=== PATIENT | male | born 1935 | race Caucasian/White ===

== ENCOUNTER → 2016-05-21 | Outpatient (CLI) | payer MEDICARE, BC ==
--- NOTE | 2016-05-21 15:23 | MR ---
EXAMINATION TYPE: MR brain wo/w con DATE OF EXAM: 05/21/2016 2:04 PM COMPARISON: NONE HISTORY: headaches, Lung Ca CONTRAST: Patient received 10 mL intravenous MultiHance gadolinium contrast. Multiplanar and multispin-echo imaging of the brain was performed . Pre and post contrast enhanced i mages are obtained. The ventricles, basal cisterns and sulci overlying the cerebral convexities are mildly enlarged. There is evidence of moderate confluent periventricular white matter ischemic demyelination. Remote deep white matter insults are also noted. No acute edema is seen on diffusion weighted imaging. There is no evidence for midline shift or mass effect. Acute intracranial hemorrhage or extra-axial collection is not evident. No enhancing lesions are seen. The mastoid air cells are well-aerated. Chronic paranasal sinusitis. IMPRESSION: Age-related atrophic and chronic small vessel ischemic change. No acute intracranial process at this time. No enhancing lesions are seen.
== END | disposition home or self-care (01) ==
LOC: RADMRIMAIN 12:59
PROVIDERS: ATTEND Internal Medicine Hematology & Oncology
DX: I67.82 Cerebral ischemia (principal); G31.9 Degenerative disease of nervous system, unspecified; C34.90 Malignant neoplasm of unspecified part of unspecified bronchus or lung
CPT/HCPCS: 70553; A9577; 99212

== ENCOUNTER → 2016-08-16 | Outpatient (CLI) | payer MEDICARE, BC ==
--- NOTE | 2016-08-16 15:08 | CT ---
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 Coronal/sagittal reconstructions performed. CT DLP: 365mGycm. Automatic exposure control utilized for a dose reduction. FINDINGS: The heart is upper limits of normal in size with a extensive aortic valvular calcifications. Addition al extensive coronary vessel calcifications are present and are remarkable for coronary artery diseas e. Mild ectasia ascending aorta at 3.6 cm. Moderate atherosclerotic arch calcifications with bovine conf iguration to the aortic arch. Calcified mediastinal lymph nodes suggest prior granulomatous disease. No thoracic lymphadenopathy by CT size criteria. Evaluation of the lungs shows moderate centrilobular emphysema with scattered calcified granulomas. T here is some reticular opacities in the lung bases that could reflect interstitial fibrosis. Peripheral left upper lobe lung mass is redemonstrated abutting the pleural surface. This measures th is has an irregular shape with maximal measurements of 2.8 x 3.1 cm versus 3.2 x 3.6 cm. The overall bulk has also decreased in the interval. Moderate atherosclerotic calcifications seen within the visualized upper abdominal aorta with a calci fied granuloma in the superior liver and a couple calcified granulomas in the spleen. Minimal thicken ing of the left adrenal gland is unchanged without discrete nodularity. Bones: Old healed left-sided rib fracture deformities. Endplate spondylosis mid to lower thoracic spi ne. No osseous destructive process. IMPRESSION: 1. The patient's peripheral left upper lobe neoplasm shows some interval decrease in size now measuri ng 3.1 x 2.8 cm versus 3.6 x 2.2 cm, previously. 2. 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
== END | disposition home or self-care (01) ==
LOC: RADCTMAIN 12:49
PROVIDERS: ATTEND Radiology Radiation Oncology
DX: C34.12 Malignant neoplasm of upper lobe, left bronchus or lung (principal); J43.9 Emphysema, unspecified
CPT/HCPCS: 82565; 84520; 71260; 36415; Q9967

== ENCOUNTER → 2017-02-18 | Outpatient (CLI) | payer MEDICARE, BC ==
[2017-02-18 08:18] LABS: Blood Urea Nitrogen 22 mg/dL (9-20); Non-African American GFR(MDRD) >60 (>60 ml/min/1.73 sqM)
--- NOTE | 2017-02-18 11:42 | CT ---
EXAMINATION TYPE: CT chest w con DATE OF EXAM: 02/18/2017 COMPARISON: Chest CT August 16, 2016. PET/CT March 24, 2016 HISTORY: Lung CA left-sided progress study had radiation treatment ended May 2016 CT DLP: 253.6 mGycm. Automated Exposure Control for Dose Reduction was Utilized. TECHNIQUE: CT scan of the thorax is performed following with IV Contrast, patient injected with 100 mL of Omnipaque 300. FINDINGS: LUNGS: There is residual spiculated nodule left upper lobe measuring 1.6 x 1.6 cm on axial image 23 d ecreased in size from PET/CT and most recent chest CT. Some new focal pleural thickening anteriorly o n axial image 22 is noted. There is new surrounding reticulation and groundglass opacity with bronchi ectatic change felt to reflect posttreatment change or scarring. There is background of mild to moderate emphysematous change bilaterally. A few tiny calcified nodule s anteriorly in the right mid to lower lung are redemonstrated. There is some patchy bibasilar scarri ng and/or atelectasis redemonstrated. No new pleural effusion or pneumothorax is seen bilaterally. No suspicious new noncalcified mass or nodule is present. MEDIASTINUM: There are no greater than 1 cm hilar or mediastinal lymph nodes. No pericardial effusi on is seen. There is new right-sided dual lead pacemaker with leads terminating in right atrium and right ventricle. There is new metallic stent graft at aortic root. There is satisfactory contrast opa cification of aorta without suspicious extraluminal contrast. Heart size is upper limits of normal. T here is moderate calcified atherosclerotic change throughout aorta particularly aortic arch and visua lized abdominal aorta. OTHER: Bilateral gynecomastia is again seen. A few calcifications scattered throughout the spleen are redemonstrated. Multilevel spurring throughout the spine is redemonstrated. There is exaggerated tho racic kyphosis. IMPRESSION: 1. Interval decrease in size of left upper lobe malignant nodule. New surrounding scarring is present consistent with history of radiation treatment. There is background of mild to moderate emphysematou s change redemonstrated. No new suspicious mass or adenopathy is seen.
== END | disposition home or self-care (01) ==
LOC: RADCTMAIN 07:49
PROVIDERS: ATTEND Radiology Radiation Oncology
DX: C34.12 Malignant neoplasm of upper lobe, left bronchus or lung (principal); J98.4 Other disorders of lung; J43.9 Emphysema, unspecified
CPT/HCPCS: 82565; 84520; 71260; 36415; Q9967

== ENCOUNTER → 2017-05-30 | Outpatient (CLI) | payer MEDICARE, BC ==
[2017-05-30 08:59] LABS: Blood Urea Nitrogen 16 mg/dL (9-20)
--- NOTE | 2017-05-30 09:40 | CT ---
EXAMINATION TYPE: CT chest w con DATE OF EXAM: 05/30/2017 COMPARISON: 02/18/2017, 08/16/2016 HISTORY: 81-year-old male follow-up Lung Cancer TECHNIQUE: Contiguous axial scanning of the chest after the administration of 100 mL of Omnipaque 300 . Coronal/sagittal reconstructions performed. CT DLP: 378mGycm. Automatic exposure control utilized for a dose reduction. FINDINGS: Heart upper limits of normal in size without pericardial effusion. Endovascular aortic valve replacem ent is evident. Extensive coronary vessel calcifications are present. Ascending aorta remains ectatic currently measures 3.7 cm. Upper descending thoracic aorta ectatic at 3.2 cm. Moderate atherosclerotic arch calcifications with bovine configuration to the aortic arch Borderline caliber to the main right and left pulmonary arteries at 2.5 and 2.67 m, respectively, sug gesting underlying pulmonary arterial hypertension. Mild to moderate bilateral gynecomastia. Calcified lymph nodes in the mediastinum compatible with corrina or granulomatous disease. No thoracic lymphadenopathy by CT size criteria. The patient's known left upper lobe nodule has become more obscured secondary to increasing consolida tive changes at the site of radiation. It is estimated to measure 2.1 x 1.5 cm versus 2.1 x 1.7 cm as remeasured on prior exam. There is some developing volume loss at site of radiation. Moderate centrilobular emphysema with scattered areas of pleural-parenchymal scarring. Additional sca ttered calcified granulomas. Bibasilar reticular densities suggest chronic interstitial scarring. There is a new trace left pleura l effusion. Visualized upper abdomen shows moderate atherosclerotic calcifications in the upper abdominal aorta w ith calcified granulomas in the spleen and at least one within the central liver. Right-sided pacemaker generator with right atrial and right ventricular leads. Bones: Endplate spondylosis mid to lower thoracic spine. No osseous destructive process seen. IMPRESSION: 1. Left upper lobe nodule is more obscured from prior exam due to some increasing consolidation at th e radiation port. Possible developing fibrosis or radiation pneumonitis. The nodule is estimated to m easure 2.1 x 1.5 cm versus 2.1 x 1.7 cm, previously. 2. Trace left effusion is new/increased. 3. CAD, COPD with pulmonary hypertension and prior granulomatous disease.
== END | disposition home or self-care (01) ==
LOC: RADCTMAIN 08:20
PROVIDERS: ATTEND Radiology Radiation Oncology
DX: C34.12 Malignant neoplasm of upper lobe, left bronchus or lung (principal); I25.10 Atherosclerotic heart disease of native coronary artery without angina pectoris; J44.9 Chronic obstructive pulmonary disease, unspecified; I27.20 Pulmonary hypertension, unspecified; J90 Pleural effusion, not elsewhere classified
CPT/HCPCS: 82565; 84520; 71260; 36415; Q9967

== ENCOUNTER → 2017-09-02 | Outpatient (CLI) | payer MEDICARE, BC ==
--- NOTE | 2017-09-02 09:37 | CT ---
EXAMINATION TYPE: CT chest w con DATE OF EXAM: 09/02/2017 COMPARISON: 05/30/2017 HISTORY: Lung cancer follow up CT DLP: 200.4 mGycm Automated exposure control for dose reduction was used. CONTRAST: CT scan of the chest is performed with IV Contrast, patient injected with 100 mL of Isovue 300. FINDINGS: LUNGS: Moderate centrilobular emphysema with scattered areas of pleural- parenchymal scarring. Additi onal scattered calcified granulomas. Bibasilar reticular densities suggest chronic interstitial scarr ing. There is a trace left pleural effusion. The patient's known left upper lobe nodule is again obscured secondary to increasing consolidative ch anges at the site of radiation. It is estimated to measure 2.1 x 1.5 cm versus 2.1 x 1.5 cm as remeas ured on prior exam. There is some developing volume loss at site of radiation. MEDIASTINUM: Heart upper limits of normal in size without pericardial effusion. Endovascular aortic v alve replacement is evident. Extensive coronary vessel calcifications are present. Ascending aorta re denita ectatic currently measures 3.7 cm. Upper descending thoracic aorta ectatic at 3.2 cm. Moderate atherosclerotic arch calcifications with bovine configuration to the aortic arch Borderline caliber t o the main right and left pulmonary arteries at 2.5 and 2.67 m, respectively, suggesting underlying p ulmonary arterial hypertension. Mild to moderate bilateral gynecomastia. Calcified lymph nodes in the mediastinum compatible with pr ior granulomatous disease. No thoracic lymphadenopathy by CT size criteria.Right-sided pacemaker gene rator with right atrial and right ventricular leads. OTHER: Visualized upper abdomen shows moderate atherosclerotic calcifications in the upper abdominal aorta with calcified granulomas in the spleen and at least one within the central liver. Endplate sp ondylosis mid to lower thoracic spine. No osseous destructive process seen. Chronic rib deformities n oted. . IMPRESSION: 1.Left upper lobe nodule remains obscured from prior exam due to consolidation at the radiation port. Possible developing fibrosis or radiation pneumonitis. The nodule is estimated to measure 2.1 x 1.5 cm versus 2.1 x 1.5 cm, previously and appears stable. 2. CAD, COPD with pulmonary hypertension and prior granulomatous disease.
--- NOTE | 2017-09-04 11:34 | CONS ---
CONSULTATION This gentleman was admitted to [facility] dated 08/03/2017. This 81-year-old gentleman who is known to me for the office. Patient has an episode of dizziness spell and he was passed out and was brought to the [facility] and had a workup including CT of the brain and carotid ultrasound. I was consulted for the evaluation. Patient is well known to me from the past. Patient had a left carotid endarterectomy done by me in the past. He had multiple surgeries including placement of aortic valve at [facility] and also had a coronary artery stent placed and also had a pacemaker placed. The patient also has been diagnosed with CA of the lung. No history of any motor deficit or any weakness in the arm and leg. PHYSICAL EXAM: On exam, patient was seen in his room. NECK: Supple. No bruit appreciated. CHEST: Clear to auscultation. ABDOMEN: Soft. The brachial and radial pulses are present. Normal motor function. The patient has about ultrasound right side 70%, left side less than 40% stenosis. At this point patient is having cardiac workup. We will follow up in my office. MMODL / IJN: [id number] /
== END | disposition home or self-care (01) ==
LOC: RADCTMAIN 08:20
PROVIDERS: ATTEND Radiology Radiation Oncology
DX: C34.12 Malignant neoplasm of upper lobe, left bronchus or lung (principal); R91.8 Other nonspecific abnormal finding of lung field; I25.10 Atherosclerotic heart disease of native coronary artery without angina pectoris; J44.9 Chronic obstructive pulmonary disease, unspecified; I10 Essential (primary) hypertension
CPT/HCPCS: 82565; 84520; 71260; 36415; Q9967

== ENCOUNTER → 2018-05-01 | Outpatient (CLI) | payer MEDICARE, BC ==
--- NOTE | 2018-05-01 09:51 | CT ---
EXAMINATION TYPE: CT chest wo/w con DATE OF EXAM: 05/01/2018 COMPARISON: 01/06/2018 HISTORY: Follow up lung cancer CT DLP: 521.2 mGycm Automated exposure control for dose reduction was used. CONTRAST: CT scan of the chest is performed without and with IV Contrast, patient injected with 100 mL of Isovu e 300. FINDINGS: LUNGS: Moderate centrilobular emphysema with scattered areas of pleural- parenchymal scarring. Additi onal scattered calcified granulomas. Bibasilar reticular densities suggest chronic interstitial scarr ing. There is a trace left pleural effusion. Bilateral calcified nodules are seen suggestive of granu eugenio. The patient's known left upper lobe nodule is again obscured secondary to consolidative changes at t he site of radiation. It is estimated to measure 2.1 x 1.5 cm versus 2.1 x 1.5 cm as remeasured on pr ior exam. There is some developing volume loss at site of radiation. Interlobular septal thickening c ompatible chronic interstitial lung disease. Pleural thickening along the left upper lobe laterally s table. There is interlobular septal thickening compatible with mild chronic interstitial lung disease . MEDIASTINUM: Heart upper limits of normal in size without pericardial effusion. Endovascular aortic v alve replacement is evident. Extensive coronary vessel calcifications are present. Ascending aorta re denita ectatic currently measures 3.7 cm. Upper descending thoracic aorta ectatic at 3.2 cm. Moderate atherosclerotic arch calcifications with bovine configuration to the aortic arch. Previous surgery involving the aortic valve suspected. Borderline caliber to the main right and left pulmonary arteries at 2.5 and 2.67 m, respectively, suggesting underlying pulmonary arterial hyperten jaime. Mild to moderate bilateral gynecomastia. Calcified lymph nodes in the mediastinum compatible with corrina or granulomatous disease. No thoracic lymphadenopathy by CT size criteria.Right-sided pacemaker gener ator with right atrial and right ventricular leads. Thyroid tissue extends substernally. OTHER: Visualized upper abdomen shows moderate atherosclerotic calcifications in the upper abdominal aorta with calcified granulomas in the spleen and at least one within the central liver. Endplate sp ondylosis mid to lower thoracic spine. No osseous destructive process seen. Chronic rib deformities n oted. Sclerotic change involving the left anterior rib may be post therapeutic or related to remote t rauma appears stable. No destructive changes seen. Findings stable. Simple appearing left renal cysts stable. IMPRESSION: 1. Left upper lobe mass consolidation remains stable from prior exam. 2. CAD, COPD with pulmonary hypertension and prior granulomatous disease.
== END ==
LOC: RADCTMAIN 08:15
PROVIDERS: ATTEND Radiology Radiation Oncology
DX: C34.12 Malignant neoplasm of upper lobe, left bronchus or lung (principal); I25.10 Atherosclerotic heart disease of native coronary artery without angina pectoris; J44.9 Chronic obstructive pulmonary disease, unspecified; I27.20 Pulmonary hypertension, unspecified; Z92.3 Personal history of irradiation; Z87.891 Personal history of nicotine dependence
CPT/HCPCS: 82565; 84520; 71270; 36415; Q9967

== ENCOUNTER → 2018-10-28 | Outpatient (CLI) | payer MEDICARE, BC ==
--- NOTE | 2018-10-28 13:08 | CT ---
EXAMINATION TYPE: CT chest wo/w con DATE OF EXAM: 10/28/2018 COMPARISON: 05/01/2018 HISTORY: 83-year-old male Malignant neoplasm of upper lobe, left bronchus TECHNIQUE: Contiguous axial scanning of the chest after the administration of 100 ml mL of Isovue 300 . Coronal/sagittal reconstructions performed. CT DLP: 501mGycm. Automatic exposure control utilized for a dose reduction. FINDINGS: Heart upper limits of normal in size without pericardial effusion. Endovascular aortic valve replacem ent demonstrated. Pacer leads are present. Extensive coronary vessel calcifications are demonstrated. Ectatic ascending aorta at 3.6 cm. Moderate atherosclerotic arch calcifications with bovine configura tion to the aortic arch. Borderline sized caliber to the main right and left pulmonary arteries at 2.5 cm suggesting underlyin g pulmonary arterial hypertension. Calcified mediastinal and hilar lymph nodes suggests sequela of prior granulomatous disease. No enlar ging thoracic lymphadenopathy seen. Scattered tiny calcified granulomas seen throughout the lungs. Moderate centrilobular emphysema. Some stable interstitial scarring subpleural peripheral right upper lobe. Lingular volume loss redemonstrated along with focal band of patchy density and reticular change exte nding back across the posterior aspect of the left midlung. No new nodularity or masslike thickening seen in this region. Visualized upper abdomen shows moderate to severe atherosclerotic calcifications in the abdominal aor ta and scattered calcified granulomas in the spleen and to a lesser extent within the liver. Bones: Mild pectus excavatum. Moderate degenerative disc disease throughout the thoracic spine. IMPRESSION: 1. COPD and prior granulomatous disease. 2. Stable chronic volume loss and consolidation within the lingula and band of patchy density extendi ng back across the posterior aspect of the left midlung. Findings likely relate to site of treated di sease and posttreatment change. No evidence for disease recurrence. 3. CAD.
== END | disposition home or self-care (01) ==
LOC: RADCTMAIN 10:38
PROVIDERS: ATTEND Radiology Radiation Oncology
DX: J44.9 Chronic obstructive pulmonary disease, unspecified (principal); I25.10 Atherosclerotic heart disease of native coronary artery without angina pectoris; Z87.891 Personal history of nicotine dependence; Z92.3 Personal history of irradiation
CPT/HCPCS: 82565; 84520; 71270; 36415; Q9967

== ENCOUNTER → 2019-04-06 | Outpatient (CLI) | payer MEDICARE, BC ==
--- NOTE | 2019-04-06 17:15 | CT ---
EXAMINATION TYPE: CT chest wo/w con DATE OF EXAM: 04/06/2019 COMPARISON: 10/28/2018 HISTORY: Lung CA CT DLP: 440.8 mGycm, Automated exposure control for dose reduction was used. CONTRAST: Performed injected with 80 mL of Isovue 300. TECHNIQUE: Axial images were obtained at 5 mm thick sections. Reconstructed images are reviewed on [employer] computer in the coronal plane. FINDINGS: Portion of the thyroid visualized is normal. Emphysematous changes are present bilaterally. There is a triangular irregular density extending through the lingula to the hilum. There appear to be multiple small nodules which were present on the prior examination of 10/28/2018. Th ere is a small nodule within the periphery of the left lung measuring 0.3 cm, series 7 image 20. Smal l amount of pneumonitis changes along the major fissure on the right series 7 image 28. There is a sm all nodule within the right middle lobe measuring 0.3 cm. Series 7 image 36. Punctate calcification i s in the right middle lobe measuring 0.3 cm. Series 7 image 39. Additional nodules are measuring 0.4 cm. 0.3 and 0.4 cm nodules within the right middle and lower lobe. Series 7 image 42. No enlarged mediastinal or hilar adenopathy is evident. The ascending aorta diameter at the level o f the main pulmonary artery is 3.9 cm. The main pulmonary artery diameter at the bifurcation is 3.1 cm. Marked dense coronary artery calcification is present. Limited CT sections are obtained through the upper abdomen. Abdomen is essentially unremarkable. IMPRESSIONS: 1. Stable appearance CT chest left lung mass appears unchanged from prior exam.
== END | disposition home or self-care (01) ==
LOC: RADCTMAIN 13:14
PROVIDERS: ATTEND Radiology Radiation Oncology
DX: R91.8 Other nonspecific abnormal finding of lung field (principal); C34.12 Malignant neoplasm of upper lobe, left bronchus or lung; Z87.891 Personal history of nicotine dependence; Z92.3 Personal history of irradiation
CPT/HCPCS: 82565; 84520; 71270; 36415; Q9967

== ENCOUNTER → 2019-10-12 | Outpatient (CLI) | payer MEDICARE, BC ==
--- NOTE | 2019-10-12 14:35 | CT ---
EXAMINATION TYPE: CT chest w con DATE OF EXAM: 10/12/2019 COMPARISON: Prior CT April 06, 2019 and older CTs. Prior PET/CT March 24, 2016 HISTORY: Follow up history of left-sided lung cancer. Patient had radiation treatment 2016. CT DLP: 366.1 mGycm. Automated Exposure Control for Dose Reduction was Utilized. TECHNIQUE: CT scan of the thorax is performed following with IV Contrast, patient injected with 80 m L of Isovue 300. FINDINGS: LUNGS: Persistent background moderate to advanced underlying emphysematous change with [id number] te scattered parenchymal fibrotic reticular changes bilaterally greatest in the lung bases. Persisten t slightly elevated left hemidiaphragm. 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 Occasional calcified nodule or granul angeles in the bilateral lower lobes is redemonstrated along with the right midlung lateral anterior and central aspect. No definitive new greater than 4 mm noncalcified nodules. No pleural effusion or pneu mothorax is evident bilaterally. MEDIASTINUM: There is stable prominent partially calcified pericarinal lymph node axial image 30 jd g with prominent partially calcified subcarinal lymph nodes. No definitive new enlarged noncalcified lymph nodes. Stable calcified subcentimeter right hilar lymph nodes. No pericardial effusion is see n. Stable cardiomegaly with moderate left ventricular dilatation. Stent graft in the aortic root red emonstrated. Moderate calcified plaque abdominal aorta extends into branch vessels. Mild/moderate lef t atrial dilatation. Dual-lead right-sided pacemaker redemonstrated. OTHER: Some cortical thinning visualized portion of left kidney. Significant bilateral subareolar nod ular gynecomastia again seen. Exaggerated thoracic curvature with S-shaped scoliosis and multilevel s purring redemonstrated IMPRESSION: Background [id number] underlying emphysematous redemonstrated. Evidence of old gr anulomatous disease. Fairly stable findings to the left upper lobe treated neoplasm and suspected sca rring accounting for technical differences and irregularity of the lesion. Lesion remains fairly low dense suggesting no active recurrence. No obvious new mass or adenopathy to suggest neoplastic progre ssion noted.
== END | disposition home or self-care (01) ==
LOC: RADCTMAIN 12:50
PROVIDERS: ATTEND Radiology Radiation Oncology
DX: J43.9 Emphysema, unspecified (principal); C34.12 Malignant neoplasm of upper lobe, left bronchus or lung; Z85.828 Personal history of other malignant neoplasm of skin; Z87.891 Personal history of nicotine dependence; Z92.3 Personal history of irradiation
CPT/HCPCS: 82565; 84520; 71260; 36415; Q9967